=== PATIENT | female | born 1980 | race Caucasian/White ===

== ENCOUNTER 2016-12-02 01:16 | Emergency (ER) | payer OTHER ==
[2016-12-02 05:26] LABS: BUN/CREATININE RATIO 25 (0-10)
== END 2016-12-02 07:23 | disposition home or self-care (01) ==
LOC: ER1 01:16
PROVIDERS: Specialist/Technologist Athletic Trainer
DX: R10.84 Generalized abdominal pain (principal); R11.0 Nausea; R19.7 Diarrhea, unspecified; F17.200 Nicotine dependence, unspecified, uncomplicated
CPT/HCPCS: 36415; 80053; 81001; 84703; 99284

== ENCOUNTER 2020-06-23 13:56 | Emergency (ER) | payer OTHER ==
[~2020-06-23 13:56] MED LIST: AUGMENTIN 875-1 EACH PO; LODINE CAP 300300 MG PO
[2020-06-23 15:52] LABS: HEMOGLOBIN 15.1 gm/dl (12.3-15.3); RED BLOOD COUNT 5.02 M/UL (4.00-5.10); WHITE BLOOD COUNT 15.4 K/UL (4.5-11.0)
[2020-06-23 16:15] LABS: BUN/CREATININE RATIO 13 (0-10)
[2020-06-23] MEDS ORDERED: IBUPROFEN600 MG PO (16:58)
[2020-06-23] MEDS ORDERED: AUGMENTIN 875-1 EACH PO (16:58)
== END 2020-06-23 17:30 | disposition home or self-care (01) ==
LOC: ER1 13:56
PROVIDERS: Emergency Medicine
DX: K04.7 Periapical abscess without sinus (principal); J34.89 Other specified disorders of nose and nasal sinuses; K02.9 Dental caries, unspecified; F17.200 Nicotine dependence, unspecified, uncomplicated
CPT/HCPCS: 80053; 84703; 85025; 96365; 96375; 99284; J0295; J1100; J1885; J7030